=== PATIENT | female | born 1955 | race Hispanic/Latino ===

== ENCOUNTER 2018-12-05 15:53 | Emergency (ER) | payer OTHER ==
[2018-12-05] MEDS ORDERED: IBUPROFEN 400 MG TABLET ONE (16:35)
[2018-12-05] MEDS ORDERED: CYCLOBENZAPRINE HCL 10 MG TABLET ONE (16:35)
== END 2018-12-05 17:35 | disposition home or self-care (01) ==
LOC: EDH 15:53
DX: S00.83XA Contusion of other part of head, initial encounter (principal); I10 Essential (primary) hypertension; Z90.710 Acquired absence of both cervix and uterus; Y04.8XXA Assault by other bodily force, initial encounter; Y93.89 Activity, other specified; Y92.89 Other specified places as the place of occurrence of the external cause; Y99.8 Other external cause status
CPT/HCPCS: 70450; 70486